=== PATIENT | female | born 1935 | race Asian ===

== ENCOUNTER 2022-05-17 19:19 | Inpatient (IN) | payer MEDICARE, BC ==
[~2022-05-17] VITALS: Ht 157.5 cm; Wt 47.6 kg
--- NOTE | 2022-05-17 20:28 | NUR ---
LUPE 878 FROM [place] FOR L ARM, L SHOULDER PAIN S/P TRIP AND FALL IN HER ROOM THIS AM. PT AWAKE. TOLERATING R/A WELL WITH NO RESP DISTRESS. SAFETY MEASURES IN PLACE.
[2022-05-17] MEDS ORDERED: PROPOFOL 200 MG/20 ML VIAL IV ONE (22:30)
--- NOTE | 2022-05-17 22:34 | NUR ---
RAC #20G S/L BLOOD COLLECTED AND SENT TO LAB
[2022-05-17] MEDS ORDERED: PROPOFOL 20 ML IV ONE (23:12)
--- NOTE | 2022-05-17 23:15 | NUR ---
PAGED ORTHO ANALYST
--- NOTE | 2022-05-17 23:15 | NUR ---
SON SIGNED CONSENT FORM FOR CLOSED LEFT ARM REDUCTION UNDER MODERATE SEDATION; VERBALIZED UNDERSTANDING
[2022-05-17 23:21] LABS: HEMATOCRIT 42 % (33-45); HEMOGLOBIN 13.6 g/dL (11.5-14.8); LYMPHOCYTES # (AUTO) 0.7 K/uL (0.8-4.8); LYMPHOCYTES % (AUTO) 4.2 % (20.0-44.0); MEAN CORPUSCULAR HGB CONC 32 g/dl (31.0-36.0); MEAN CORPUSCULAR VOLUME 90 fL (82-100); MONOCYTES # (AUTO) 0.4 K/uL (0.1-1.30); MONOCYTES % (AUTO) 2.4 % (2.0-12.0); NEUTROPHILS # (AUTO) 16.7 K/uL (1.8-8.9); NEUTROPHILS % (AUTO) 93.4 % (43.0-81.0); PLATELET COUNT (AUTO) 324 K/uL (150-450); RED BLOOD CELL COUNT(AUTO) 4.67 MIL/uL (4.0-5.2); WHITE BLOOD COUNT (AUTO) 17.8 K/uL (4.3-11.0)
--- NOTE | 2022-05-17 23:52 | NUR ---
COVID ANTIGEN SWAB COLLECTED AND SENT TO LAB
[2022-05-18 00:04] LABS: CALCIUM, SERUM 9.5 mg/dL (8.5-10.1); CREATININE 1.1 mg/dL (0.6-1.3); POTASSIUM 3.5 mmol/L (3.5-5.1)
--- NOTE | 2022-05-18 00:20 | NUR ---
PAGED ORTHO MULTIPLE TIMES WITH NO CALL BACK.
--- NOTE | 2022-05-18 00:27 | NUR ---
ABIEL ALDRIDGE AWAITING CALLBACK
[2022-05-18] MEDS ORDERED: IV NS 0.9% 1,000 ML BAG IV ONE (00:30)
[2022-05-18] MEDS ORDERED: VANCOMYCIN 1 GM in IV D5W 250 ML IV ONE (00:30)
[2022-05-18] MEDS ORDERED: CEFEPIME 1 GM in IV D5W 50 ML IV ONE (00:30)
[2022-05-18] MEDS ORDERED: HYDROCODONE/APAP 5/325MG TABLET PO PRN (01:00)
[2022-05-18] MEDS ORDERED: ONDANSETRON HCL/PF 4 MG/2 ML VIAL IVP PRN (01:00)
[2022-05-18] MEDS ORDERED: MAGNESIUM HYDROXIDE 30 ML UDC PO PRN (01:00)
[2022-05-18] MEDS ORDERED: MORPHINE SULFATE INJ 2 MG/ML DISP.SYRIN IV PRN (01:00)
[2022-05-18] MEDS ORDERED: ACETAMINOPHEN 325 MG TABLET PO PRN (01:00)
[2022-05-18] MEDS ORDERED: Z GUARD REMEDY 4 OZ OINT TP PRN (01:00)
[2022-05-18] MEDS ORDERED: MAG HYDROX/AL HYDROX/SIMETH 30 ML UDC PO PRN (01:00)
[2022-05-18] MEDS ORDERED: CEFEPIME 1 GM VIAL ONE (01:18)
[2022-05-18] MEDS ORDERED: VANCOMYCIN 1 GM VIAL ONE (01:18)
--- NOTE | 2022-05-18 01:21 | NUR ---
PER ORTHO PAGE NOT ABLE TO CONTACT DR. GALLEGOS.
--- NOTE | 2022-05-18 01:48 | NUR ---
REPORT GIVEN TO KATIA Dinero RN FOR EUGENIA
--- NOTE | 2022-05-18 02:14 | NUR ---
PT TRANSFERRRING TO [facility] VIA HOSPITAL PROTOCOL. VSS. ENDORSED VANCOMYCIN IVATB TO RN FOR EUGENIA.
--- NOTE | 2022-05-18 02:30 | NUR ---
MS RN ADMITTING NOTE PATIENT WAS TRANSFERRED FROM ER TO [facility] AT 0215H VIA GURNEY; PATIENT IS ALERT AND ORIENTED X 4, ABLE TO MAKE NEEDS KNOWN; STABLE ON ROOM AIR, BREATHING EVENLY AND NO RESPIRATORY DISTRESS NOTED; WITH IV ACCESS ON RIGHT HAND G22; PATIENT ORIENTED TO ROOM AND STAFF; VITAL SIGNS TAKEN AND RECORDED; BILATERAL KNEE WOUNDS AND RIGHT ARM SCRATCHES NOTED, PHOTOGRAPHED AND INSERTED INTO CHARTS; ENCOURAGED VERBALIZATION OF NEEDS; SAFETY MEASURES IMPLEMENTED, BED IN LOW POSITION, LOCKED, SIDE RAILS UP X 4, CALL LIGHT WITHIN REACH; WILL CONTINUE TO MONITOR THROUGHOUT SHIFT
--- NOTE | 2022-05-18 03:00 | NUR ---
MS RN NOTE LATE ADMINISTRATION OF VANCOMYCIN IV At 0255H INSTEAD OF 0030 BECAUSE PATIENT ARRIVED IN [facility] AT 0215H
--- NOTE | 2022-05-18 03:30 | NUR ---
MS RN NOTE PATIENT PULLED OFF HER IV, REINSERTED AT RIGHT HAND G22, INTACT AND FLUSHED WITH NORMAL SALINE. CONTINUED IV MEDICATIONS PRESCRIBED.
[2022-05-18] MEDS: IV NS 0.9% 1,000 ML IV SCH ×2 (04:06→17:37)
[2022-05-18] MEDS ORDERED: CEFTRIAXONE 1 G VIAL ONE (04:36)
[2022-05-18] MEDS: CEFTRIAXONE 1 G in IV D5W 50 ML IV SCH (04:41)
--- NOTE | 2022-05-18 04:50 | NUR ---
MS RN NOTE LATE ADMINISTRATION OF ROCEPHIN IV BECAUSE I WAITED TO FINISH THE VANCOMYCIN WHICH RUN FOR AN HOUR. SUBSEQUENTLY, PATIENT PULLED OF HER IV AND ROCEPHIN WAS OUT OF STOCK IN [address] [place] [address]. ADMINISTERED ROCEPHIN AT 0444H.
--- NOTE | 2022-05-18 06:51 | NUR ---
MS RN CLOSING NOTE PATIENT IS ALERT AND ORIENTED X 4, ABLE TO MAKE NEEDS KNOWN; STABLE ON ROOM AIR, BREATHING EVENLY AND NO RESPIRATORY DISTRESS NOTED; WITH IV ACCESS ON RIGHT HAND G22, INTACT AND PATENT; BILATERAL KNEE WOUNDS AND RIGHT ARM SCRATCHES NOTED, PHOTOGRAPHED AND INSERTED INTO CHARTS; ADMINISTERED MEDICATIONS PRESCRIBED; PATIENT'S NEEDS ATTENDED; MONITORED PATIENT ACCORDINGLY; SAFETY MEASURES IMPLEMENTED, BED IN LOW POSITION, LOCKED, SIDE RAILS UP X 4, CALL LIGHT WITHIN REACH; WILL ENDORSE TO AM NURSE FOR EUGENIA.
[2022-05-18] MEDS: PANTOPRAZOLE 40 MG TABLET.DR PO SCH (07:30)
--- NOTE | 2022-05-18 07:50 | NUR ---
MS RN OPENING NOTE PATIENT AWAKE IN BED, ALERT AND ORIENTED X 1-2, ABLE TO MAKE NEEDS KNOWN; STABLE ON ROOM AIR, BREATHING EVENLY AND NO RESPIRATORY DISTRESS NOTED; WITH IV ACCESS ON RIGHT HAND G22, INTACT AND PATENT; MAINTAINED ON NPO FOR PROCEDURE. SAFETY MEASURES IMPLEMENTED, BED IN LOW POSITION, LOCKED, SIDE RAILS UP X 4, CALL LIGHT WITHIN REACH; WILL CONTINUE TO MONITOR.
[2022-05-18] MEDS ORDERED: METF-440 PO (08:08)
[2022-05-18] MEDS ORDERED: MEMA10TA56 PO (08:08)
[2022-05-18] MEDS ORDERED: OMEG1CAP PO (08:08)
[2022-05-18] MEDS ORDERED: SENN-261 PO (08:08)
[2022-05-18] MEDS ORDERED: MULT-447 PO (08:08)
[2022-05-18] MEDS ORDERED: ATOR10TA PO (08:08)
[2022-05-18] MEDS ORDERED: MELA5TAB PO (08:08)
[2022-05-18] MEDS ORDERED: TRIA1CAP20 PO (08:08)
[2022-05-18 08:55] VITALS: BP 173/80
--- NOTE | 2022-05-18 09:00 | NUR ---
RN NOTES PATIENT WENT FOR CLOSED REDUCTION OF HUMERUS PROCEDURE, SECURED CONSENT,CHECKLIST DONE. WILL MONITOR.
[2022-05-18] MEDS ORDERED: KETAMINE HCL (500MG/10ML) 50 MG/ML VIAL ONE (09:10)
[2022-05-18] MEDS ORDERED: MIDAZOLAM HCL 2 MG/2ML VIAL ONE (09:10)
[2022-05-18] MEDS ORDERED: FENTANYL PF 100MCG/2ML AMPUL ONE (09:10)
--- NOTE | 2022-05-18 10:00 | NUR ---
RN NOTES PATIENT CAME BACK FROM OR AWAKE, A/OX2-3. WITH SLING NOTED AT LEFT UPPER ARM WITH COLD COMPRESS, NO EDEMA OR BLEEDING NOTED, WARM TO TOUCHED. VITALS TAKEN AND STABLE. BP 150/81, WY 79 RR 20 T 98 SPO2 96%. WILL MONITOR FOR ANY COMPLICATIONS.
[2022-05-18] MEDS: NITROGLYCERIN 30 GM TUBE TP SCH ×2 (11:06→21:15)
--- NOTE | 2022-05-18 11:18 | NUR ---
RN NOTES DISCHARGED ORDER BY DR. YA, NOTIFIED DR. LEVIN FOR THE DC ORDER AND WAS OKAY WITH IT. WEAVING TEACHER STEVE CALLED TO HOLD THE DISCHARGE ORDER FOR PT EVAL AND MORE TREATMENT MANAGEMENT.
[2022-05-18 14:24] LABS: BASOPHILS % (AUTO) 0.1 % (0.0-2.0); HEMATOCRIT 38 % (33-45); HEMOGLOBIN 12.7 g/dL (11.5-14.8); LYMPHOCYTES # (AUTO) 1.8 K/uL (0.8-4.8); LYMPHOCYTES % (AUTO) 11.9 % (20.0-44.0); MEAN CORPUSCULAR HGB CONC 33 g/dl (31.0-36.0); MEAN CORPUSCULAR VOLUME 89 fL (82-100); MONOCYTES # (AUTO) 0.8 K/uL (0.1-1.30); MONOCYTES % (AUTO) 5.4 % (2.0-12.0); NEUTROPHILS # (AUTO) 12.5 K/uL (1.8-8.9); NEUTROPHILS % (AUTO) 82.6 % (43.0-81.0); PLATELET COUNT (AUTO) 288 K/uL (150-450); RED BLOOD CELL COUNT(AUTO) 4.28 MIL/uL (4.0-5.2); WHITE BLOOD COUNT (AUTO) 15.2 K/uL (4.3-11.0)
[2022-05-18 16:00] VITALS: BP 136/58
[2022-05-18 16:34] LABS: ALBUMIN 3.8 g/dL (3.4-5.0); BILIRUBIN,TOTAL 0.7 mg/dL (0.2-1.0); CALCIUM, SERUM 8.9 mg/dL (8.5-10.1); CREATININE 0.9 mg/dL (0.6-1.3); MAGNESIUM 2.2 mg/dL (1.8-2.4); PHOSPHORUS 3.8 mg/dL (2.5-4.9); POTASSIUM 3.2 mmol/L (3.5-5.1); TOTAL PROTEIN, SERUM 7.9 g/dL (6.4-8.2)
[2022-05-18 16:47] LABS: THYROID STIMULATING HORMONE 0.557 uIU/mL (0.358-3.74)
[2022-05-18] MEDS ORDERED: METFORMIN 500 MG TABLET PO SCH (17:00)
[2022-05-18] MEDS: MEMANTINE HCL 5 MG TABLET PO SCH (17:37)
[2022-05-18] MEDS ORDERED: ATORVASTATIN 10 MG TABLET PO SCH (18:00)
--- NOTE | 2022-05-18 18:22 | NUR ---
MS RN CLOSING NOTE PATIENT AWAKE IN BED, ALERT AND ORIENTED X 1-2, ABLE TO MAKE NEEDS KNOWN; STABLE ON ROOM AIR, BREATHING EVENLY AND NO RESPIRATORY DISTRESS NOTED; WITH IV ACCESS ON RIGHT HAND G22, INTACT AND PATENT; ON CLEAR LIQUIDS. ALL DUE MEDS GIVEN. KEPT COMFORTABLE. SAFETY MEASURES IMPLEMENTED, BED IN LOW POSITION, LOCKED, SIDE RAILS UP X 4, CALL LIGHT WITHIN REACH; WILL ENDORSE TO NIGHT NURSE
--- NOTE | 2022-05-18 19:30 | NUR ---
noc rn opening note received patient in bed with eyes closed, easy to arouse. no s/s of apparent distress on room air. not exhibiting pain via flacc. left arm with sling, s/p closed reduction of shoulder. Rt. hand running ns @50mls/hr. safety in place-- bed in lowest, locked position, side rails up X4, call light within reach. will continue with patient's plan of care.
[2022-05-18 20:00] VITALS: BP 118/65
[2022-05-19] MEDS: CEFTRIAXONE 1 G in IV D5W 50 ML IV SCH (01:31)
[2022-05-19] MEDS: IV NS 0.9% 1,000 ML IV SCH (02:06)
--- NOTE | 2022-05-19 05:17 | NUR ---
pan rn note-- NON- ADMIN patient's sched 0206 IV NS non-admin. A whole bag is still running.
[2022-05-19 07:27] LABS: BASOPHILS % (AUTO) 0.2 % (0.0-2.0); CALCIUM, SERUM 8.3 mg/dL (8.5-10.1); CARBON DIOXIDE 24 mmol/L (21-32); CHLORIDE 106 mmol/L (98-107); CREATININE 0.7 mg/dL (0.6-1.3); EOSINOPHILS % (AUTO) 0.2 % (0.0-6.0); GLUCOSE 124 mg/dL (74-106); HEMATOCRIT 34 % (33-45); HEMOGLOBIN 11.3 g/dL (11.5-14.8); LYMPHOCYTES # (AUTO) 1.6 K/uL (0.8-4.8); LYMPHOCYTES % (AUTO) 16.7 % (20.0-44.0); MAGNESIUM 2.2 mg/dL (1.8-2.4); MEAN CORPUSCULAR HGB CONC 33 g/dl (31.0-36.0); MEAN CORPUSCULAR VOLUME 89 fL (82-100); MONOCYTES # (AUTO) 0.6 K/uL (0.1-1.30); MONOCYTES % (AUTO) 6.1 % (2.0-12.0); NEUTROPHILS # (AUTO) 7.6 K/uL (1.8-8.9); NEUTROPHILS % (AUTO) 76.8 % (43.0-81.0); PLATELET COUNT (AUTO) 261 K/uL (150-450); UREA NITROGEN, BLOOD 19 mg/dL (7-18); WHITE BLOOD COUNT (AUTO) 9.8 K/uL (4.3-11.0)
--- NOTE | 2022-05-19 07:28 | NUR ---
noc rn closing All needs attended. all scheduled medications administered. no significant change throughout shift. Endorsed to SHANITA Eastman for continuity of care.
[2022-05-19 07:37] LABS: SODIUM SERUM 139 mmol/L (136-145)
[2022-05-19] MEDS: PANTOPRAZOLE 40 MG TABLET.DR PO SCH (07:39)
[2022-05-19 07:48] LABS: THYROID STIMULATING HORMONE 1.477 uIU/mL (0.358-3.74)
--- NOTE | 2022-05-19 07:59 | NUR ---
rn opening note received patient sleeping in bed, easy to arouse. no s/s of apparent distress on room air. not exhibiting pain via flacc. left arm with sling, s/p closed reduction of shoulder. Rt. hand running ns @50mls/hr. safety in place-- bed in lowest, locked position, side rails up X4, call light within reach. will continue with patient's plan of care.
[2022-05-19 08:00] VITALS: BP 144/73
[2022-05-19] MEDS: MEMANTINE HCL 5 MG TABLET PO SCH (08:44)
[2022-05-19 08:45] VITALS: BP 111/68
[2022-05-19] MEDS: NITROGLYCERIN 30 GM TUBE TP SCH (08:45)
[2022-05-19] MEDS: POTASSIUM CHLORIDE 20 MEQ POWDER PACKET NG SCH ×3 (10:32→12:14)
--- NOTE | 2022-05-19 13:29 | NUR ---
DISCHARGED NOTES PATIENT DISCHARGED TO [facility] IN STABLE CONDITION. A/O X1. ON RA, TOLERATING WELL WITH SPO2 OF 95%. NO SOB/DISTRESS NOTED. VITAL SIGNS TAKEN, STABLE AND RECORDED. PATIENT REFUSED TO TAKE PICTURES OF WOUNDS, REFUSED PAIN MEDICATIONS PRIOR TO LEAVING THE UNIT, DENIES PAIN OR DISCOMFORT AT THIS TIME. ALL BELONGINGS ACCOUNTED TO THE PATIENT. DISCHARGED INSTRUCTIONS RELAYED TO [place]UA FROM [facility]. IV ACCESS REMOVED WITH NO ACTIVE BLEEDING NOTED. PATIENT LEFT THE UNIT GURNEY ACCOMPANIED BY AMBULANCE STAFF. DISCHARGED.
== END 2022-05-19 14:08 | DRG 562 ==
LOC: ER 19:30 → MED 05-18 01:26
PROVIDERS: ADMIT Internal Medicine; ATTEND Internal Medicine
PROC: 0RSKXZZ Reposition Left Shoulder Joint, External Approach (ICD-10-PCS; principal; 2022-05-18)
DX: S42.252A Displaced fracture of greater tuberosity of left humerus, initial encounter for closed fracture (principal); G93.41 Metabolic encephalopathy; N17.0 Acute kidney failure with tubular necrosis; R65.11 Systemic inflammatory response syndrome (SIRS) of non-infectious origin with acute organ dysfunction; S43.015A Anterior dislocation of left humerus, initial encounter; Z20.822 Contact with and (suspected) exposure to COVID-19; W01.0XXA Fall on same level from slipping, tripping and stumbling without subsequent striking against object, initial encounter; Y92.122 Bedroom in nursing home as the place of occurrence of the external cause; I10 Essential (primary) hypertension; F03.90 Unspecified dementia, unspecified severity, without behavioral disturbance, psychotic disturbance, mood disturbance, and anxiety; E11.9 Type 2 diabetes mellitus without complications; E78.5 Hyperlipidemia, unspecified; E86.0 Dehydration; S43.035A Inferior dislocation of left humerus, initial encounter; D72.829 Elevated white blood cell count, unspecified
CPT/HCPCS: 36415; 71045-TC; 73030-TC; 73060-TC; 73200-TC; 80048-TC; 80053-TC; 82962-TC; 83605-TC; 83735-TC; 84100-TC; 84443-TC; 85025-TC; 85610-TC; 85730-TC; 86850-TC; 87040-TC; 87081-TC; 93307-TC; 97116-TC; 97530-TC; A4223; A4565; G0378; G0500; J0692; J0696; J2250; J2704; J3010; J3370; J3490; J7030; J7060

== ENCOUNTER 2022-06-01 23:48 | Emergency (ER) | payer MEDICARE, BC ==
[~2022-06-01] VITALS: Ht 157.5 cm; Wt 47.6 kg
[~2022-06-01 23:48] MED LIST: ATOR10TA PO; MELA5TAB PO; MEMA10TA56 PO; METF-440 PO; MULT-447 PO; OMEG1CAP PO; SENN-261 PO; TRIA1CAP20 PO
--- NOTE | 2022-06-01 23:55 | NUR ---
LUPE 839 FROM [place] FOR FOUND PATIENT ON THE FLOOR AND GUARDING HER L SHOULDER WITH HX OF L SHOULDER FRACTURE LAST 05/18/22. - SHOULDER SLING, -C/O PAIN. PATIENT IS AAOX4 .ABLE TO MAKE NEEDS KNOWN. PLACED COMFOTABLY IN BED.
--- NOTE | 2022-06-02 00:17 | NUR ---
DR CARO AT BEDSIDE
--- NOTE | 2022-06-02 00:50 | NUR ---
BROUGHT TO CT DEPT.
--- NOTE | 2022-06-02 02:21 | NUR ---
REPORT GIVEN TO [facility] CLAYTON MACKENZIE.
--- NOTE | 2022-06-02 02:22 | NUR ---
Patient discharged to home in stable condition. Written and verbal after care instructions given. Patient verbalizes understanding of instruction.
[2022-06-02 02:25] VITALS: BP 138/76
== END 2022-06-02 02:46 ==
LOC: ER 23:50
DX: S42.292A Other displaced fracture of upper end of left humerus, initial encounter for closed fracture (principal); S43.402A Unspecified sprain of left shoulder joint, initial encounter; S09.90XA Unspecified injury of head, initial encounter; F03.90 Unspecified dementia, unspecified severity, without behavioral disturbance, psychotic disturbance, mood disturbance, and anxiety; E78.5 Hyperlipidemia, unspecified; I10 Essential (primary) hypertension; E11.9 Type 2 diabetes mellitus without complications; Z79.899 Other long term (current) drug therapy; Z79.84 Long term (current) use of oral hypoglycemic drugs; W18.30XA Fall on same level, unspecified, initial encounter; Y93.89 Activity, other specified; Y92.89 Other specified places as the place of occurrence of the external cause; Y99.8 Other external cause status
CPT/HCPCS: 70450-TC; 72125-TC; 73030-TC

== ENCOUNTER 2022-06-08 20:48 | Emergency (ER) | payer MEDICARE, BC ==
[~2022-06-08] VITALS: Ht 157.5 cm; Wt 49.9 kg
[2022-06-08 22:25] VITALS: BP 137/99
== END 2022-06-08 23:48 ==
LOC: ER 20:50
DX: S00.83XA Contusion of other part of head, initial encounter (principal); R51.9 Headache, unspecified; M54.2 Cervicalgia; I10 Essential (primary) hypertension; E78.5 Hyperlipidemia, unspecified; E11.9 Type 2 diabetes mellitus without complications; Z79.899 Other long term (current) drug therapy; W01.0XXA Fall on same level from slipping, tripping and stumbling without subsequent striking against object, initial encounter; Y93.89 Activity, other specified; Y92.89 Other specified places as the place of occurrence of the external cause; Y99.8 Other external cause status
CPT/HCPCS: 70450-TC; 70486-TC; 72125-TC